=== PATIENT | female | born 1995 | race Caucasian/White ===

== ENCOUNTER 2023-12-07 11:24 | Emergency (ER) | payer BC, SELFPAY ==
[2023-12-07 11:30] VITALS: BP 159/85
--- NOTE | 2023-12-07 13:14 | ED.GENMED ---
History of Present Illness
General
Chief Complaint: Musculo-Skeletal Complaint
Source: patient and family
Exam Limitations: none
Time Seen by Provider: 12/07/23 12:08
Nursing documentation reviewed up to this point in time: agreed with
Travel History
Have you had any contact with someone who has COVID-19?: No
Do you have any symptoms of coronavirus? Fever > 100 degrees, chills, cough, shortness of breath, sore throat, loss of taste or smell, muscle aches, or headache?: No
History of Present Illness
History of Present Illness:
28-year-old female without significant past medical history presenting to the emergency department today with concerns of left-sided hand discomfort ongoing since playing soccer 2 days ago. She claims that a ball was kicked aiming at her face she
went to block a shot hit her directly in the hand she has had ongoing discomfort since mainly just below her index finger. Denies additional concerns. Has been some bruising to her face but denies additional symptoms otherwise changes in vision or
numbness weakness. She did not lose consciousness.
Past History
Social History
Tobacco: Non-smoker
Alcohol: None
Drug: None
Review of Systems
Review of Systems
Allergies reviewed?: Yes
All Other Systems: ROS reviewed and negative except as documented in HPI and ROS
Phy Exam
Physical Exam
Physical Exam:
GENERAL: Alert , in no apparent distress
EYE: pupils equal and reactive
NECK: Supple, no significant adenopathy.
ENT: Ecchymosis below the left eye otherwise normal HEENT exam. o/p clr, mmm.
CARDIAC: Regular rate and rhythm .
LUNGS: Clear breath sounds bilaterally, no acute respiratory distress, no wheezes/rales/rhonchi
ABDOMEN: Soft, without focal tenderness, no r/g, no cvat
NEUROLOGICAL: Alert and oriented, no focal neuro deficits
SKIN: Warm and dry, skin intact.
MUSCULOSKELETAL: No edema, well perfused.
PSYCH: Normal and appropriate interaction.
Course
Orders/Labs/Results
Orders:
Orders
12/07/23 11:35
Hand, Left 3 View [CR Hand - Left Min 3 Views] Urgent
Comment:
Reason For Exam: pain injury
Vital Signs
Initial and Last Documented VS:
Initial Vital Signs
Temp Pulse Resp BP Pulse Ox
98.0 F 90 16 159/85 100
12/07/23 11:30 12/07/23 11:30 12/07/23 11:30 12/07/23 11:30 12/07/23 11:30
Last Documented Vital Signs
Temp Pulse Resp BP Pulse Ox
98.0 F 90 16 159/85 100
12/07/23 11:30 12/07/23 11:30 12/07/23 11:30 12/07/23 11:30 12/07/23 11:30
Procedures
Splinting/Sling Placement
Left Proximal Second Hand:
Procedure completed by: Me
Pre-splint extermity exam: good alignment
Type of splint: other (radial gutter)
Splint material: fiberglass
Splint checked by provider?: Yes
Type of sling: sling fitted
Normal distal neurovascular exam?: Yes
MDM/Problems Addressed
MDM/Problems Addressed:
28-year-old female presenting to the emergency department today with concerns of hand discomfort after being struck by a soccer ball 2 days ago. Denies numbness weakness or additional concerns. Tenderness is mainly to the proximal portion of the
second metacarpal. Swelling overlying the area. X-ray does show a small lucency of the proximal portion of the second metacarpal. Potentially consistent with fracture considering this is exactly where the patient's symptoms are. Patient was
splinted in a radial gutter splint and advised orthopedic follow-up. Return precautions given.
*Critical Care Note
Total Time (30-74mins, 75-104mins- exclusive of procedures): Not Applicable
ED Attending Note
-
Portions of this chart may have been created with voice recognition software.� Occasional wrong word or��sound alike� substitutions may have occurred due to the inherent limitations of voice recognition software.
Discharge Plan
Departure
Patient Disposition: Home (Routine Discharge)
Date of Disposition: 12/07/23
Time of Disposition: 13:16
Patient with high blood pressure during this ER visit?: No
Condition: Good
Covid-19: Not Applicable
Discharge Problem:
Closed fracture of 2nd metacarpal
Instructions: Hand Fracture (DC)
Referrals:
Salvador Medina MD [Active] - Follow up in 5-7 days
UNKNOWN - PT DOES,NOT KNOW [Family Provider] -
Activity Restrictions/Additional Instructions:
You came to the emergency department today with concerns of hand discomfort. You are found to have a hand fracture. Please follow-up closely with orthopedics. Please rest ice compress and elevate. Return to the emergency department for any
worsening, new or concerning symptoms.
Interventions
Interventions:
*Risk Screen - Suicide Last Done: 12/07/23 11:33
*General Assessment Last Done: 12/07/23 11:33
*Neglect/Abuse Screening Last Done: 12/07/23 11:33
Discharge Date and Time
Print Language: SAMI
== END 2023-12-07 13:34 | disposition home or self-care (01) ==
LOC: EMR 11:24
PROVIDERS: EMERGENCY PHYSICIAN Emergency Medicine
DX: S62.391A Other fracture of second metacarpal bone, left hand, initial encounter for closed fracture (principal); W21.02XA Struck by soccer ball, initial encounter
CPT/HCPCS: 99283; 29125; 73130